=== PATIENT | female | born 1960 | race American Indian/Alaskan Native ===

== ENCOUNTER 2019-07-31 22:48 | Emergency (ER) | payer SELFPAY ==
--- NOTE | 2019-08-01 08:24 | Emergency Department Report ---
ED Female HPI - General Chief complaint: Abdominal Pain Stated complaint: SEVERE LOW ABD PAIN LOW BACK PAIN Time Seen by Provider: 08/01/19 08:12 Source: patient Mode of arrival: Ambulatory Limitations: No Limitations - History of Present Illness Complaint: possible STD Location: suprapubic Radiation: non-radiating Severity: mild Consistency: constant Improves with: none Worsens with: none Are you Now?: No Associated Symptoms: vaginal discharge. denies: loss of appetite, dysuria - Related Data Home Medications Medication Instructions Recorded Confirmed Last Taken Lisinopril/Hydrochlorothiazide 1 tab PO QDAY 02/26/14 02/26/14 02/25/14 [Zestoretic 20-25 mg] Previous Rx's Medication Instructions Recorded Last Taken Type cephALEXin [Keflex] 500 mg PO BID #20 capsule 02/26/14 Unknown Rx Acetaminophen/Codeine 1 tab PO Q6H PRN #12 tab 04/21/14 Unknown Rx [Acetaminophen-Codeine #3 TAB] Cephalexin [Keflex] 500 mg PO QID #28 capsule 04/21/14 Unknown Rx Ibuprofen [Motrin 800 MG tab] 800 mg PO TID PRN #30 tablet 04/21/14 Unknown Rx Nitrofurantoin Harding/M-Cryst 100 mg PO Q12HR #20 capsule 08/01/19 Unknown Rx [Macrobid CAP] Allergies Allergy/AdvReac Type Severity Reaction Status Date / Time No Known Allergies Allergy Verified 02/26/14 03:45 ED Review of Systems ROS: Stated complaint: SEVERE LOW ABD PAIN LOW BACK PAIN Other details as noted in HPI Comment: All other systems reviewed and negative ED Past Medical Hx - Past Medical History Hx Hypertension: Yes Hx Asthma: Yes Additional medical history: hx left lower leg infection - Surgical History Additional Surgical History: - Social History Smoking Status: Never Smoker Substance Use Type: Alcohol - Medications Home Medications: Home Medications Medication Instructions Recorded Confirmed Last Taken Type Lisinopril/Hydrochlorothiazide 1 tab PO QDAY 02/26/14 02/26/14 02/25/14 History [Zestoretic 20-25 mg] cephALEXin [Keflex] 500 mg PO BID #20 capsule 02/26/14 Unknown Rx Acetaminophen/Codeine 1 tab PO Q6H PRN #12 tab 04/21/14 Unknown Rx [Acetaminophen-Codeine #3 TAB] Cephalexin [Keflex] 500 mg PO QID #28 capsule 04/21/14 Unknown Rx Ibuprofen [Motrin 800 MG tab] 800 mg PO TID PRN #30 tablet 04/21/14 Unknown Rx Nitrofurantoin Harding/M-Cryst 100 mg PO Q12HR #20 capsule 08/01/19 Unknown Rx [Macrobid CAP] ED Physical Exam - General Limitations: No Limitations General appearance: alert, in no apparent distress - Head Head exam: Present: atraumatic, normocephalic - Eye Eye exam: Present: normal appearance - ENT ENT exam: Present: mucous membranes moist - Neck Neck exam: Present: normal inspection - Respiratory Respiratory exam: Present: normal lung sounds bilaterally. Absent: respiratory distress - Cardiovascular Cardiovascular Exam: Present: regular rate, normal rhythm. Absent: systolic murmur, diastolic murmur, rubs, gallop - GI/Abdominal GI/Abdominal exam: Present: soft, normal bowel sounds - Speculum exam: Present: vaginal discharge Bi-manual exam: Present: other (Nursing city auditor Megan was present during examination) - Extremities Exam Extremities exam: Present: normal inspection, full ROM, normal capillary refill - Back Exam Back exam: Present: normal inspection. Absent: CVA tenderness (R), CVA tenderness (L) - Neurological Exam Neurological exam: Present: alert, oriented X3, CN II-XII intact - Psychiatric Psychiatric exam: Present: normal affect, normal mood - Skin Skin exam: Present: warm, dry, intact, normal color. Absent: rash ED Course Vital Signs 07/31/19 22:52 Temperature 97.8 F Pulse Rate 89 Respiratory 18 Rate Blood Pressure 149/90 O2 Sat by Pulse 97 Oximetry Critical care attestation.: If time is entered above; I have spent that time in minutes in the direct care of this critically ill patient, excluding procedure time. ED Disposition Clinical Impression: Vaginitis, Dysuria Disposition: DC-01 TO HOME OR SELFCARE Is pt being admited?: No Does the pt Need Aspirin: No Condition: Stable Instructions: Abdominal Pain (ED) Prescriptions: Nitrofurantoin Harding/M-Cryst [Macrobid CAP] 100 mg PO Q12HR #20 capsule Referrals: [facility] [Provider Group] - 3-5 Days
[2019-08-01] MEDS ORDERED: HYDROcodone/ACETAMINOPHEN 5-325 MG TAB PO STA (09:57)
[2019-08-01 14:19] VITALS: BP 155/96
== END 2019-08-01 14:18 | disposition home or self-care (01) ==
LOC: ED 22:48
DX: N76.0 Acute vaginitis (principal); R30.0 Dysuria; J45.909 Unspecified asthma, uncomplicated; Z98.890 Other specified postprocedural states; Z79.899 Other long term (current) drug therapy
CPT/HCPCS: 87210; 87591; 99282